=== PATIENT | female | born 1975 | race African-American/Black ===

== ENCOUNTER 2016-11-10 19:58 | Emergency (ER) | payer OTHER ==
[2016-11-10] MEDS ORDERED: Ketorolac Tromethamine 30 MG/ML VIAL ONE (20:34)
[2016-11-10 20:37] LABS: Pregnancy Test - Urine (BHCG) Negative (Negative); Pregu Control Background? CLEAR/WHITE (CLR/WHITE); Pregu Control Bar Appear? YES (CONTROL BAR); Specific Gravity 1.015 (1.002-1.036)
[2016-11-10 20:38] LABS: Clarity Hazy (Clear); Specific Gravity, Urine 1.015 (1.002-1.036)
[2016-11-10 20:51] LABS: Bacteria/HPF 2+ HPF (None Seen); RBC/HPF 0-3 HPF (0-3); Squamous Epithelial 0-3 HPF (0-3); WBC/HPF 0-3 HPF (0-3)
[2016-11-10 20:57] LABS: Hemoglobin 9.8 g/dL (12.0-16.0); Mean Corpuscular HGB CONC 29.4 g/dL (32.0-36.0); Mean Corpuscular Hemoglobin 22.5 pg (27.0-31.0); Mean Corpuscular Volume 76.7 fl (81.0-99.0); Mean Platelet Volume 5.1 fL (7.4-10.4); Platelet Count 301 thou/uL (130-400); Red Blood Cell (RBC) Count 4.33 mill/uL (4.20-5.40)
[2016-11-10 21:01] LABS: ALT (SGPT) 14 U/L (8-55); AST (SGOT) 18 U/L (5-34); Alkaline Phosphatase 47 U/L (40-150); Anion Gap 12 mmol/L (10-20); BUN (Urea Nitrogen) 9 mg/dL (7.0-18.7); Bilirubin, Total 0.5 mg/dL (0.2-1.2); Calc. Creatinine Clearance 0 mL/min (70-130); Calcium 9.3 mg/dL (7.8-10.44); Carbon Dioxide 24 mmol/L (22-29); Chloride 108 mmol/L (98-107); Estimated GFR-MDRD Greater than 90; Globulin 3.9 g/dL (2.4-3.5); Glucose 96 mg/dL (70-105); Potassium 4.3 mmol/L (3.5-5.1); Protein, Total 7.9 g/dL (6.0-8.3); Sodium 140 mmol/L (136-145)
[2016-11-10 21:12] LABS: #Basophils 0.1 thou/uL (0.0-0.2); #Lymphocytes 2.3 thou/uL (1.20-3.40); #Monocytes 0.8 thou/uL (0.11-0.59); #Neutrophils 3.8 thou/uL (1.40-6.50); %Basophils 0.9 % (0.0-1.0); %Eosinophils 0.3 % (0.0-10.0); %Lymphocytes 32.7 % (21.0-51.0); %Monocytes 11.9 % (0.0-10.0); %Neutrophils 54.3 % (42.0-75.0); Anisocytosis SLIGHT = 6-15 cells (100X) (0-5/hpf); Hypochromia SLIGHT = 6-15 cells (100X) (0-5/hpf); MDiff Complete? YES; Microcytosis SLIGHT = 6-15 cells (100X) (0-5/hpf); PLT Morphology Comment Appears Adequate
[2016-11-10] MEDS ORDERED: traMADol HCl 50 MG TAB ONE ×2 (21:49)
--- NOTE | 2016-11-11 08:33 | CT ---
PRELIMINARY REPORT/[facility]/EMERGENCY AFTER HOURS PROCEDURE: EXAM: CT Abdomen and Pelvis Without Intravenous Contrast CLINICAL HISTORY: 41 years old, female; Pain; Abdominal pain; Localized; Right lower quadrant (rlq); Patient HX: Pt pr esents to the er for abdominal pain; Symptoms are localized, most severe in the right lower quadrant TECHNIQUE: Axial computed tomography images of the abdomen and pelvis without intravenous contrast. All CT scan s at this facility use one or more dose reduction techniques, viz.: automated exposure control; ma/k V adjustment per patient size (including targeted exams where dose is matched to indication; i.e. he ad); or iterative reconstruction technique. Coronal reformatted images were created and reviewed. COMPARISON: No relevant prior studies available. FINDINGS: Lower thorax: No acute findings. ABDOMEN: Liver: Unremarkable. Gallbladder and bile ducts: Unremarkable. No calcified stones. No ductal dilation. Pancreas: Unremarkable. No ductal dilation. Spleen: Unremarkable. No splenomegaly. Adrenals: Unremarkable. No mass. Kidneys and ureters: Unremarkable. No obstructing stones. No hydronephrosis. Stomach and bowel: Unremarkable. No obstruction. No mucosal thickening. Appendix: Appendix not precisely identified, however no secondary signs of appendicitis in the right lower quadrant. PELVIS: Bladder: Unremarkable. No stones. Reproductive: Mild enlargement of the uterus with small contour change anteriorly within the uterus. ABDOMEN and PELVIS: Intraperitoneal space: Small pelvic free fluid. This could be physiologic in menstruation. No free a ir. Bones/joints: Mild degenerative and scoliotic changes of the thoracolumbar spine. No acute fracture. No dislocation. Soft tissues: Unremarkable. Vasculature: Multiple prominent bilateral phleboliths. No abdominal aortic aneurysm. Lymph nodes: Unremarkable. No enlarged lymph nodes. IMPRESSION: Mild enlargement of the uterus with small contour change anteriorly within the uterus. This could re present uterine leiomyoma. Followup evaluation can be performed with pelvic ultrasound. Thank you for allowing us to participate in the care of your patient. Dictated and Authenticated by: Joe Roberts MD 11/10/2016 9:38 PM Central Time ([place] \T\ [place]) FINAL REPORT CT OF THE ABDOMEN AND PELVIS WITHOUT CONTRAST: DATE: 11/10/16. FINDINGS: Spiral CT of the abdomen and pelvis was done without oral or IV contrast using a renal stone protoco l. The lung bases are clear. No effusions are present. The liver, spleen, pancreas, gallbladder, adrenal glands, kidneys, and abdominal aorta were unremarkable within the limitations of a noncontra st study. No renal or ureteral calculi were seen. There is no hydronephrosis. There is abundant fecal material in the colon, but there is no sign of obstruction. Several calcifi cations are seen throughout the abdomen, some alongside the left psoas muscle one just to the right of the right psoas muscle in the right lower quadrant. These are presumably phleboliths. None appe ar to be in ureters. While it was difficult to identify an appendix, there is no secondary sign of appendicitis. CT of the pelvis shows mild uterine enlargement. The contour defect along the anterior wall is prob ably a fibroid. There is some free fluid present in the pelvis. IMPRESSION: No acute abdominal or pelvic findings. See other findings above. Report in agreement with preliminary reading by [id number]. POS: HOME
[2016-11-12 20:11] LABS: Chlamydia by PCR Not Detected (NotDetected); GC by PCR Not Detected (NotDetected)
== END 2016-11-10 22:00 | disposition home or self-care (01) ==
LOC: BURERS 19:58
DX: R10.2 Pelvic and perineal pain (principal); K21.9 Gastro-esophageal reflux disease without esophagitis; G43.909 Migraine, unspecified, not intractable, without status migrainosus; Z79.899 Other long term (current) drug therapy
CPT/HCPCS: 74176; 80053; 81003; 81015; 81025; 85025; 87086; 87491; 87591; 96374; J1885